=== PATIENT | male | born 2000 | race Caucasian/White ===

== ENCOUNTER 2021-04-17 11:04 | Outpatient (CLI) | payer OTHER ==
[2021-04-17 21:58] LABS: SARS-CoV-2 PCR by NAA Not Detected (NotDetected)
== END 2021-04-17 11:05 | disposition home or self-care (01) ==
LOC: CSHLAB 11:04
PROVIDERS: ATTEND Internal Medicine Gastroenterology
DX: Z01.812 Encounter for preprocedural laboratory examination (principal); Z20.822 Contact with and (suspected) exposure to COVID-19
CPT/HCPCS: U0003; U0005

== ENCOUNTER 2021-04-20 10:21 | Day surgery (SDC) | payer OTHER ==
[2021-04-19 12:42] VITALS: BMI 27.4
[2021-04-20] MEDS ORDERED: Lidocaine 1% MPF 2 ML VIAL ONE (11:09)
== END 2021-04-20 12:54 | disposition home or self-care (01) ==
LOC: CSHSDC 10:21
PROVIDERS: ATTEND Internal Medicine Gastroenterology
PROC: 0DB68ZZ Excision of Stomach, Via Natural or Artificial Opening Endoscopic (ICD-10-PCS; principal; 2021-04-20)
DX: K25.9 Gastric ulcer, unspecified as acute or chronic, without hemorrhage or perforation (principal); F41.9 Anxiety disorder, unspecified; F32.9 Major depressive disorder, single episode, unspecified
CPT/HCPCS: 88305; 88312

== ENCOUNTER 2021-05-14 13:02 | Outpatient (CLI) | payer OTHER ==
[2021-05-14 22:08] LABS: SARS-CoV-2 PCR by NAA Not Detected (NotDetected)
== END 2021-05-14 13:03 | disposition home or self-care (01) ==
LOC: CSHLAB 13:02
PROVIDERS: ATTEND Internal Medicine Gastroenterology
DX: Z20.822 Contact with and (suspected) exposure to COVID-19 (principal); R10.9 Unspecified abdominal pain
CPT/HCPCS: U0003; U0005

== ENCOUNTER 2021-05-17 09:03 | Day surgery (SDC) | payer OTHER ==
[2021-05-15 12:31] VITALS: BMI 25.0
[2021-05-17] MEDS ORDERED: Lidocaine 1% MPF 2 ML VIAL ONE (09:25)
[2021-05-17] MEDS ORDERED: PROPOFOL 40 ML ONE (10:17)
[2021-05-17] MEDS ORDERED: Lidocaine 1% PF 5 ML VIAL ONE (10:17)
[2021-05-17] MEDS ORDERED: Midazolam HCl 2 mg/2 ml Vial ONE (10:22)
[2021-05-17] MEDS ORDERED: PROPOFOL 20 ML ONE (10:33)
== END 2021-05-17 11:25 | disposition home or self-care (01) ==
LOC: CSHSDC 09:03
PROVIDERS: ATTEND Internal Medicine Gastroenterology
PROC: 0DJD8ZZ Inspection of Lower Intestinal Tract, Via Natural or Artificial Opening Endoscopic (ICD-10-PCS; principal; 2021-05-17)
DX: K62.5 Hemorrhage of anus and rectum (principal); R10.9 Unspecified abdominal pain; K64.9 Unspecified hemorrhoids; K25.9 Gastric ulcer, unspecified as acute or chronic, without hemorrhage or perforation; F41.8 Other specified anxiety disorders; Z80.0 Family history of malignant neoplasm of digestive organs
CPT/HCPCS: J2250; J2704